=== PATIENT | female | born 1980 | race Caucasian/White ===

== ENCOUNTER → 2023-01-30 09:50 | Outpatient (BNVA) | payer OTHER, SELFPAY | PROVIDERS: PCP Nurse Practitioner; Visit Provider Nurse Practitioner | DX: R49.0 Dysphonia (principal) | CPT/HCPCS: 87071; 87880 ==

== ENCOUNTER 2023-11-29 14:52 | Outpatient (CLI) | payer OTHER, SELFPAY ==
--- NOTE | 2023-11-29 15:00 | MM_ITS ---
WS: [id number] BILATERAL 3D TOMOSYNTHESIS DIGITAL SCREENING MAMMOGRAPHY WITH CAD CLINICAL INFORMATION: Z12.31 - Encounter for screening mammogram for malignant ... HISTORY: Screening mammogram. No current complaints. COMPARISON: Baseline TECHNIQUE: Bilateral CC and MLO views. FINDINGS: Scattered fibroglandular densities bilaterally. No suspicious focal mass, asymmetry, calcifications, or architectural distortion. No evidence of malignancy. MM/[place] [id number] IMPRESSION: BI-RADS: 1-Negative FOLLOW UP: 1 Year Follow-up Recommend return to annual screening mammography.
== END 2023-11-29 14:53 | disposition home or self-care (01) ==
PROVIDERS: PCP Nurse Practitioner Family; Visit Provider Nurse Practitioner Family
DX: Z12.31 Encounter for screening mammogram for malignant neoplasm of breast (principal); Z80.3 Family history of malignant neoplasm of breast
CPT/HCPCS: 77063; 77067

== ENCOUNTER → 2023-12-21 11:00 | Outpatient (BNVA) | payer OTHER, SELFPAY | PROVIDERS: PCP Nurse Practitioner Family; Referring Provider Nurse Practitioner Family; Visit Provider Nurse Practitioner Women's Health | DX: Z00.00 Encounter for general adult medical examination without abnormal findings (principal) | CPT/HCPCS: 87624 ==

== ENCOUNTER → 2024-01-31 15:34 | Outpatient (BNVA) | payer OTHER, SELFPAY | PROVIDERS: PCP Nurse Practitioner Family; Visit Provider Nurse Practitioner Women's Health | DX: N84.1 Polyp of cervix uteri (principal) | CPT/HCPCS: 76830 ==

== ENCOUNTER 2024-05-02 07:10 | Day surgery (SDC) | payer OTHER, SELFPAY ==
[2024-05-02] VITALS (8 sets, daily range): BP systolic 133–172; BP diastolic 79–112; PULSE 61–75; RESP 16–18; TEMP 36.3–36.4; O2SAT 93–98; BMI 51.5
--- NOTE | 2024-05-02 04:30 | W.PM.OPSFHP ---
Same Day Surgery H&P Indication for Procedure/HPI DATE OF PROCEDURE: May 02, 2024 CHIEF COMPLAINT/INDICATIONFOR SURGICAL PROCEDURE: endocervical polyp PREOP DIAGNOSIS: endocervical polyp PLANNED PROCEDURE: Operation Date: 05/02/24 09:10 Proposed Procedures p Hysteroscopy Hysteroscopy w/ Endometrial Sampling 44688, N84.1(Not Applicable) - Juanpablo Vences MD s Poylpectomy(Not Applicable) - Juanpablo Vences MD 44 y.o. h/o BTL found on exam to have an endocervical polyp unable to remove in clinic due to pain now scheduled for hysteroscopy, endometrial sampling, polypectomy Medications/Allergies* Home Medications Medication Instructions Recorded Confirmed Type aspirin 81 mg tablet,delayed 81 mg PO DAILY 11/07/23 05/01/24 History release atorvastatin 80 mg tablet (Lipitor) 80 mg PO DAILY 11/07/23 05/01/24 History Allergies/Adverse Reactions Allergy/AdvReac Type Severity Reaction Status Date / Time lincomycin Allergy Unknown Verified 05/01/24 14:56 Pertinent History/Comorbid Conditions* Medical History (Updated 12/21/23 @ 11:09 by Pina Stevens NP) Well woman exam Family history of breast cancer in first degree relative Breast cancer screening by mammogram Essential hypertension Nasal congestion Family History (Updated 12/21/23 @ 10:24 by Jaleel Lagos) Diabetes Grandfather Heart disease Father Breast cancer Mother Hypertension Mother Grandmother Stroke Mother Denies family history of Colon cancer Ovarian cancer Prostate cancer Hyperlipidemia Uterine cancer Thyroid disease Social History Smoking and tobacco/nicotine status: never used tobacco/nicotine Quit status (tobacco/nicotine): has quit using Second hand smoke exposure: No Alcohol intake: never Substance/Drug Use: current Substance/Drug use frequency: few times a week Pertinent Exam Findings alert, oriented x 3, clear to auscultation bilaterally and regular rate & rhythm Pertinent Data Pap 12-19-23 NILM, negative HPV pelvic sono 01-31-24 normal uterus and endometrium 1.7 cm cervical polyp normal ovaries Recommendations Surgery/Procedure today Coding Level of Care Code Acute Code for Chg Fwd Time Spent (min) 15
[2024-05-02] MEDS: sodium chloride 0.9% 1,000 ML 30 ML IV (07:30)
[2024-05-02 07:50] LABS: OR HCG Qualitative Urine Negative (Negative)
--- NOTE | 2024-05-02 09:06 | W.PM.OPSUD ---
Surgery/Procedure H&P Update DATE OF PROCEDURE: May 02, 2024 DATE H&P PERFORMED: 05/02/24 H&P UPDATE INFORMATION: I have reviewed H&P completed within last 30 days, I have examined patient prior to procedure and No changes to prior documentation PREOP DIAGNOSIS: endocervical polyp PLANNED PROCEDURE: Operation Date: 05/02/24 09:10 Proposed Procedures p Hysteroscopy Hysteroscopy w/ Endometrial Sampling 34138, N84.1(Not Applicable) - Juanpablo Vences MD s Poylpectomy(Not Applicable) - Juanpablo Vences MD
--- NOTE | 2024-05-02 09:46 | ANES.PREANE2 ---
Pre-Anesthetic Assessment Height/Weight: Height 1.63 m Weight 136.078 kg Temp Pulse Resp BP Pulse Ox O2 Del Method 97.4 F L 74 18 172/104 98 Room Air 05/02/24 07:15 05/02/24 07:15 05/02/24 07:15 05/02/24 07:15 05/02/24 07:15 05/02/24 07:37 Preop Diagnosis: endocervical polyp Operation Date: 05/02/24 09:10 Proposed Procedures p Hysteroscopy Hysteroscopy w/ Endometrial Sampling 16978, N84.1(Not Applicable) - Juanpablo Vences MD s Poylpectomy(Not Applicable) - Juanpablo Vences MD Familial anesthetic complications: none Was Beta López taken within 24 hours: N/A Was Clonidine taken within 24 hours: N/A Last intake: Intake Last Liquid Date 05/01/24 Last Liquid Time 20:00 Last Solid Date 05/01/24 Last Solid Time 18:00 Social No alcohol and No tobacco Exam alert, oriented x 3, clear to auscultation bilaterally and regular rate & rhythm Airway Submandibular: within normal limits Cervical ROM: within normal limits Mallampati: Class II Dentition: full CV/HEM Hypertension Metabolic Hyperlipidemia and Morbid Obesity Anesthetic Plan ASA status: 3 Anesthesia: General Medications/Allergies Home Medications Medication Instructions Recorded Confirmed Last Taken Type aspirin 81 mg tablet,delayed 81 mg PO DAILY 11/07/23 05/02/24 05/01/24 History release atorvastatin 80 mg tablet (Lipitor) 80 mg PO DAILY 11/07/23 05/02/24 05/01/24 History lisinopril 20 mg tablet 20 mg PO DAILY #30 tabs 12/21/23 05/02/24 05/01/24 Rx Allergies Allergy/AdvReac Type Severity Reaction Status Date / Time lincomycin Allergy Unknown Verified 05/02/24 07:20 Current Medications Generic Name Dose Route Start Last Admin Trade Name Freq PRN Reason Stop Dose Admin Sodium Chloride 1,000 mls @ 30 mls/hr 05/02/24 07:30 05/02/24 07:30 Sodium Chloride 0.9% IV 05/03/24 07:29 30 mls/hr .Q24H HERON Administration PFSH Anesthesia Medical History Well woman exam Family history of breast cancer in first degree relative Breast cancer screening by mammogram Essential hypertension Nasal congestion Family History Mother Breast cancer Hypertension Stroke Grandfather Diabetes Father Heart disease Grandmother Hypertension Denies family history of Colon cancer Ovarian cancer Prostate cancer Hyperlipidemia Uterine cancer Thyroid disease Social History Smoking and tobacco/nicotine status: never used tobacco/nicotine Quit status (tobacco/nicotine): has quit using Second hand smoke exposure: No Alcohol intake: never Substance/Drug Use: current Substance/Drug use frequency: few times a week Data Anesthesia Cardiac Studies: No Data to Display
--- NOTE | 2024-05-02 10:05 | PM.OP ---
Operative Report Date of procedure: May 02, 2024 Pre-op diagnosis: endocervical polyp Post-op diagnosis: same Post-op findings: normal endometrial cavity No polyps / fibroids Minimal endometrial tissue No endocervical polyp Procedure done: hysteroscopy Curettage of uterus Implants: none Specimens removed/disposition: endocervical curettings Surgeon: Juanpablo Vences MD Anesthesia: MAC Estimated blood loss (mL): 0 Complications: none Findings: normal endometrial cavity No polyps / fibroids Minimal endometrial tissue No endocervical polyp Condition: stable Disposition: PACU Brief History: 44 y.o. found to have an endocervical polyp on exam unable to remove as outpatient due to pain Procedure: Informed consent signed. Patient was taken to the operating room. Anesthesia was induced. Patient was placed in dorsolithotomy position, prepped and draped for hysteroscopy. A bivalve speculum was placed in the vagina. The anterior lip of the cervix was grasped with a sharp-toothed tenaculum. The cervix was serially dilated with Hegar dilators. . A hysteroscope was placed into the endometrial cavity. The endometrial cavity was seen to be normal. There were no polyps or fibroids. There was a minimal amount of endometrial tissue. There was no endocervical polyp. The hysteroscope was then removed. Endometrial curettage was done with a sharp curette. Endometrial tissue was sent to pathology. The sharp-toothed tenaculum was removed. There was no bleeding from the endometrial cavity or cervix. The patient was then placed supine and awakened and taken to the PACU. Postop condition: stable EBL: none Sponge and instruments counts were normal x 2 Complications: none
[2024-05-02] MEDS: ondansetron 2 mg/ML SDV 2 mL 4 MG IVP (10:45)
--- NOTE | 2024-05-02 11:33 | ANE.PACU2 ---
Inpatient post-anesthesia follow up: Airway intact: Yes Vital signs: Temperature 97.4 F Pulse Rate 67 Respiratory Rate 18 Blood Pressure 155/112 Pulse Oximetry 93 Oxygen Delivery Me thod Room Air Oxygen Flow Rate Fraction of Inspir ed Oxygen Hydration adequate: Yes Nausea and vomiting: Yes Pain level: 2 Mental status: Baseline
== END 2024-05-02 11:26 | disposition home or self-care (01) ==
PROVIDERS: Anesthesiology; PCP Nurse Practitioner Family; Visit Provider Obstetrics & Gynecology
PROC: 0UJD8ZZ Inspection of Uterus and Cervix, Via Natural or Artificial Opening Endoscopic (ICD-10-PCS; CPT 58555; principal; 2024-05-02 09:10)
DX: N84.1 Polyp of cervix uteri (principal); Z79.82 Long term (current) use of aspirin; I10 Essential (primary) hypertension; E78.5 Hyperlipidemia, unspecified; E66.01 Morbid (severe) obesity due to excess calories
CPT/HCPCS: 58558; 81025; 88305; J0330; J1100; J1200; J1885; J2250; J2405; J2704; J3010; J3490; J7030

== ENCOUNTER 2025-02-10 11:22 | Outpatient (CLI) | payer OTHER, SELFPAY ==
--- NOTE | 2025-02-10 11:20 | MM_ITS ---
WS: [id number] BILATERAL SCREENING DIGITAL TOMOSYNTHESIS MAMMOGRAM WITH CAD HISTORY: SCREENING COMPARISON: 11/29/2023 Bilateral CC and MLO views with tomosynthesis and synthetic mammography submitted. Computer aided detection analyzed. Breast composition: There are scattered areas of fibroglandular density. No suspicious masses, microcalcifications or architectural distortion. Intramammary lymph node upper outer quadrant RIGHT breast is stable. MM/MM scr BI tomosynthesis [id number] IMPRESSION: BI-RADS: 2 - Benign. FOLLOW UP: 1 Year Follow-up
== END 2025-02-10 11:23 | disposition home or self-care (01) ==
PROVIDERS: PCP Nurse Practitioner Family; Visit Provider Nurse Practitioner Family
DX: Z12.31 Encounter for screening mammogram for malignant neoplasm of breast (principal); R92.323 Mammographic fibroglandular density, bilateral breasts; N63.11 Unspecified lump in the right breast, upper outer quadrant
CPT/HCPCS: 77063; 77067